=== PATIENT | male | born 1965 | race Caucasian/White ===

== ENCOUNTER 2020-08-28 14:29 | Emergency (ER) | payer OTHER ==
[~2020-08-28] VITALS: Ht 165.1 cm; Wt 68.0 kg
[~2020-08-28 14:29] MED LIST: ALBU90OI INH; ANORO ELLIPTA1 EAC1 INH; CLON1 PO; IBUP400 PO; IBUP600 PO; Lamictal150 MG PO; ONDA4ODT MM; PARO20 PO; POTA10T PO; Percocet 5-3251 EACH PO; QUET100 PO; TIZA4 PO
== END 2020-08-28 16:30 | disposition home or self-care (01) ==
LOC: ER 14:29
DX: G89.29 Other chronic pain (principal); M54.5 Low back pain; Z87.891 Personal history of nicotine dependence; Z79.899 Other long term (current) drug therapy
CPT/HCPCS: 99283; A9270-GY

== ENCOUNTER 2022-04-12 13:05 | Emergency (ER) | payer OTHER ==
[~2022-04-12] VITALS: Ht 165.1 cm; Wt 70.3 kg
[2022-04-12 15:24] LABS: BASOPHILS ABSOLUTE AUTO 0.08 K/mm3 (0.00-0.23); BASOPHILS PERCENT AUTO 1 % (0-2); EOSINOPHILS ABSOLUTE AUTO 0.03 K/mm3 (0.00-0.68); EOSINOPHILS PERCENT AUTO 0 % (0-6); Hematocrit 42.2 % (37.0-53.0); Hemoglobin 14.8 g/dL (13.5-17.5); IMMATURE GRAN PERCENT AUTO 1 % (0-1); LYMPHOCYTES ABSOLUTE AUTO 1.06 K/mm3 (0.84-5.20); LYMPHOCYTES PERCENT AUTO 10 % (21-46); MONOCYTES ABSOLUTE AUTO 0.92 K/mm3 (0.16-1.47); MONOCYTES PERCENT AUTO 9 % (4-13); Mean Corpuscular HGB 33.2 pg (26.0-34.0); Mean Corpuscular HGB Conc 35.1 g/dL (31.5-36.5); Mean Corpuscular Volume 95 fL (80-100); Mean Platelet Volume 9.5 fL (9.1-12.4); NEUTROPHILS ABSOLUTE AUTO 8.19 K/mm3 (1.96-9.15); NEUTROPHILS PERCENT AUTO 79 % (41-73); Platelet Count 308 K/mm3 (150-400); RDW Standard Deviation 48.6 fL (35.1-46.3); Red Blood Cell Count 4.46 M/mm3 (4.30-5.90); White Blood Cell Count 10.38 K/mm3 (4.00-11.30)
[2022-04-12 15:27] LABS: Albumin, Blood 4.1 g/dL (3.4-5.0); Albumin/Globulin Ratio 0.6 (0.8-1.8); Bilirubin, Total 0.6 mg/dL (0.1-1.0); Bun/Creatinine Ratio 15.2 (12.0-20.0); Creatinine, Blood 1.12 mg/dL (0.60-1.20); Globulin, Blood 6.7 g/dL (2.2-4.0); Potassium, Blood 3.9 mmol/L (3.5-5.5); Total Protein, Blood 10.8 g/dL (6.4-8.2)
[2022-04-12] MEDS ORDERED: HYDR1TAB94 PO (21:51)
[2022-04-12] MEDS ORDERED: ONDA4ODT SL (21:51)
[2022-04-12] MEDS ORDERED: AMOCLA875 PO (21:51)
== END 2022-04-12 23:19 | disposition home or self-care (01) ==
LOC: ER 13:05
PROVIDERS: Physician Assistant
DX: K57.32 Diverticulitis of large intestine without perforation or abscess without bleeding (principal); Z79.899 Other long term (current) drug therapy; Z87.891 Personal history of nicotine dependence
CPT/HCPCS: 36415; 74177; 80053; 83690; 85025; A9270; J0295; J1200; J1630; J7030; Q9967

== ENCOUNTER 2022-04-12 23:38 | Emergency (ER) | payer OTHER ==
[~2022-04-12] VITALS: Ht 165.1 cm; Wt 68.0 kg
[~2022-04-12 23:38] MED LIST changes: +AMOCLA875 PO; +HYDR1TAB94 PO; +ONDA4ODT SL
[2022-04-13 01:48] LABS: BASOPHILS ABSOLUTE AUTO 0.04 K/mm3 (0.00-0.23); BASOPHILS PERCENT AUTO 0 % (0-2); EOSINOPHILS ABSOLUTE AUTO 0.01 K/mm3 (0.00-0.68); EOSINOPHILS PERCENT AUTO 0 % (0-6); Hematocrit 37.6 % (37.0-53.0); Hemoglobin 13.1 g/dL (13.5-17.5); IMMATURE GRAN ABSOLUTE AUTO 0.06 K/mm3 (0.00-0.10); IMMATURE GRAN PERCENT AUTO 1 % (0-1); LYMPHOCYTES ABSOLUTE AUTO 1.36 K/mm3 (0.84-5.20); LYMPHOCYTES PERCENT AUTO 14 % (21-46); MONOCYTES ABSOLUTE AUTO 1.14 K/mm3 (0.16-1.47); MONOCYTES PERCENT AUTO 12 % (4-13); Mean Corpuscular HGB 33.1 pg (26.0-34.0); Mean Corpuscular HGB Conc 34.8 g/dL (31.5-36.5); Mean Corpuscular Volume 95 fL (80-100); Mean Platelet Volume 9.1 fL (9.1-12.4); NEUTROPHILS ABSOLUTE AUTO 6.93 K/mm3 (1.96-9.15); NEUTROPHILS PERCENT AUTO 73 % (41-73); Platelet Count 245 K/mm3 (150-400); RDW Standard Deviation 48.1 fL (35.1-46.3); Red Blood Cell Count 3.96 M/mm3 (4.30-5.90); White Blood Cell Count 9.54 K/mm3 (4.00-11.30)
[2022-04-13 02:07] LABS: Albumin, Blood 3.4 g/dL (3.4-5.0); Albumin/Globulin Ratio 0.6 (0.8-1.8); Bilirubin, Total 0.5 mg/dL (0.1-1.0); Bun/Creatinine Ratio 16.2 (12.0-20.0); Calcium, Blood 8.6 mg/dL (8.5-10.1); Creatinine, Blood 1.05 mg/dL (0.60-1.20); Globulin, Blood 5.9 g/dL (2.2-4.0); Potassium, Blood 3.3 mmol/L (3.5-5.5); Total Protein, Blood 9.3 g/dL (6.4-8.2)
== END 2022-04-13 05:00 | disposition home or self-care (01) ==
LOC: ER 23:38
PROVIDERS: Emergency Medicine
DX: R10.13 Epigastric pain (principal); Z79.899 Other long term (current) drug therapy; Z87.891 Personal history of nicotine dependence
CPT/HCPCS: 80053; 83690; 85025; 96374; 96375; 99283; J2405; J3010; J7030

== ENCOUNTER 2022-05-26 14:12 | Emergency (ER) | payer OTHER ==
[~2022-05-26] VITALS: Ht 165.1 cm; Wt 68.0 kg
[2022-05-26 15:18] LABS: BASOPHILS ABSOLUTE AUTO 0.06 K/mm3 (0.00-0.23); BASOPHILS PERCENT AUTO 1 % (0-2); EOSINOPHILS PERCENT AUTO 0 % (0-6); Hematocrit 44.9 % (37.0-53.0); Hemoglobin 15.3 g/dL (13.5-17.5); IMMATURE GRAN ABSOLUTE AUTO 0.04 K/mm3 (0.00-0.10); IMMATURE GRAN PERCENT AUTO 0 % (0-1); LYMPHOCYTES ABSOLUTE AUTO 0.84 K/mm3 (0.84-5.20); LYMPHOCYTES PERCENT AUTO 9 % (21-46); MONOCYTES ABSOLUTE AUTO 0.61 K/mm3 (0.16-1.47); MONOCYTES PERCENT AUTO 7 % (4-13); Mean Corpuscular HGB 32.7 pg (26.0-34.0); Mean Corpuscular HGB Conc 34.1 g/dL (31.5-36.5); Mean Corpuscular Volume 96 fL (80-100); Mean Platelet Volume 9.1 fL (9.1-12.4); NEUTROPHILS PERCENT AUTO 84 % (41-73); Platelet Count 299 K/mm3 (150-400); RDW Coefficient Variation 13.5 % (11.7-14.2); RDW Standard Deviation 47.4 fL (35.1-46.3); Red Blood Cell Count 4.68 M/mm3 (4.30-5.90); White Blood Cell Count 9.45 K/mm3 (4.00-11.30)
[2022-05-26 15:38] LABS: Albumin, Blood 4.1 g/dL (3.4-5.0); Albumin/Globulin Ratio 0.6 (0.8-1.8); Bilirubin, Total 0.7 mg/dL (0.1-1.0); Bun/Creatinine Ratio 11.6 (12.0-20.0); Calcium, Blood 10.2 mg/dL (8.5-10.1); Creatinine, Blood 0.95 mg/dL (0.60-1.20); Globulin, Blood 6.4 g/dL (2.2-4.0); Potassium, Blood 3.3 mmol/L (3.5-5.5); Total Protein, Blood 10.5 g/dL (6.4-8.2)
[2022-05-26] MEDS ORDERED: ONDA4ODT MM (20:43)
== END 2022-05-26 21:25 | disposition home or self-care (01) ==
LOC: ER 14:12
PROVIDERS: Student in an Organized Health Care Education/Training Program
DX: R11.2 Nausea with vomiting, unspecified (principal); R10.13 Epigastric pain; E87.6 Hypokalemia; R68.83 Chills (without fever); R06.02 Shortness of breath; R07.9 Chest pain, unspecified; R05.9 Cough, unspecified; Z79.899 Other long term (current) drug therapy; G40.909 Epilepsy, unspecified, not intractable, without status epilepticus
CPT/HCPCS: 36415; 71046; 80053; 83690; 84484; 85025; A9270; J1200; J1790; J1885; J2765; J7030

== ENCOUNTER 2023-08-05 12:15 | Inpatient (IN) | payer MEDICARE, OTHER ==
[~2023-08-05] VITALS: Ht 172.7 cm; Wt 72.6 kg
[2023-08-05 12:36] LABS: BASOPHILS ABSOLUTE AUTO 0.06 K/mm3 (0.00-0.23); BASOPHILS PERCENT AUTO 1 % (0-2); EOSINOPHILS ABSOLUTE AUTO 0.12 K/mm3 (0.00-0.68); EOSINOPHILS PERCENT AUTO 2 % (0-6); Hematocrit 40.2 % (37.0-53.0); Hemoglobin 13.6 g/dL (13.5-17.5); IMMATURE GRAN ABSOLUTE AUTO 0.04 K/mm3 (0.00-0.10); IMMATURE GRAN PERCENT AUTO 1 % (0-1); LYMPHOCYTES ABSOLUTE AUTO 1.57 K/mm3 (0.84-5.20); LYMPHOCYTES PERCENT AUTO 23 % (21-46); MONOCYTES ABSOLUTE AUTO 1.11 K/mm3 (0.16-1.47); MONOCYTES PERCENT AUTO 16 % (4-13); Mean Corpuscular HGB 33.5 pg (26.0-34.0); Mean Corpuscular HGB Conc 33.8 g/dL (31.5-36.5); Mean Corpuscular Volume 99 fL (80-100); Mean Platelet Volume 8.8 fL (9.1-12.4); NEUTROPHILS ABSOLUTE AUTO 4.02 K/mm3 (1.96-9.15); NEUTROPHILS PERCENT AUTO 58 % (41-73); Platelet Count 196 K/mm3 (150-400); RDW Coefficient Variation 13.9 % (11.7-14.2); RDW Standard Deviation 50.7 fL (35.1-46.3); Red Blood Cell Count 4.06 M/mm3 (4.30-5.90); White Blood Cell Count 6.92 K/mm3 (4.00-11.30)
[2023-08-05 12:41] LABS: Source, Urine Straight Cath
[2023-08-05 12:51] LABS: Appearance, Urine Hazy (Clear); Bilirubin, Urine Neg (Neg); Blood, Urine 3+ (Neg); Color, Urine Yellow (P-Yellow); Glucose Qualitative, Urine Neg (Neg); Ketones, Urine Neg (Neg); Leukocyte Esterase, Urine 1+ (Neg); Nitrite, Urine Neg (Neg); Protein, Urine 2+ (Neg); Urobilinogen, Urine NORM (Normal)
[2023-08-05 12:54] LABS: Magnesium, Blood 1.8 mg/dL (1.6-2.4); Salicylate 5.2 mg/dL (2.8-20.0)
[2023-08-05 12:58] LABS: Acetaminophen, Random <2.0 ug/mL (10.0-30.0); Alanine Aminotransfer (ALT/SGP 29 U/L (12-78); Albumin, Blood 3.4 g/dL (3.4-5.0); Albumin/Globulin Ratio 0.5 (0.8-1.8); Alk Phos 78 U/L (50-136); Anion Gap 3 mmol/L (6-16); Aspartate Aminotrans (AST/SGOT 33 U/L (12-37); Bilirubin, Total 0.7 mg/dL (0.1-1.0); Blood Urea Nitrogen 11 mg/dL (8-24); Bun/Creatinine Ratio 9.5 (12.0-20.0); CO2, Blood 25 mmol/L (21-32); Calcium, Blood 8.9 mg/dL (8.5-10.1); Chloride, Blood 109 mmol/L (98-108); Creatinine, Blood 1.16 mg/dL (0.60-1.20); Globulin, Blood 6.3 g/dL (2.2-4.0); Glomerular Filtration Rate 73 (60-); Glucose, Blood 79 mg/dL (70-99); Phosphorus, Blood 3.2 mg/dL (2.5-4.9); Potassium, Blood 3.8 mmol/L (3.5-5.5); Sodium, Blood 137 mmol/L (136-145); Total Protein, Blood 9.7 g/dL (6.4-8.2)
[2023-08-05 13:13] LABS: U Amphetamine Screen Not Detected; U Barbituate Screen Not Detected; U Benzodiazapine Screen Not Detected; U Buprenorphine Screen Not Detected; U Cannabinoids Screen DETECTED; U Cocaine Screen Not Detected; U Methadone Screen Not Detected; U Methamphetamine Screen Not Detected; U Opiates Screen Not Detected; U Oxycodone Screen Not Detected; U Phencyclidine Screen Not Detected; U Propoxyphene Screen Not Detected
[2023-08-05 13:24] LABS: International Normalized Ratio 1.03; Prothrombin Time Results 10.8 Sec (9.7-11.5)
[2023-08-05 13:26] LABS: Influenza A, PCR NEGATIVE (NEGATIVE); Influenza B, PCR NEGATIVE (NEGATIVE); Resp Syncytial Virus, PCR NEGATIVE (NEGATIVE); SARS-Cov-2 (COVID-19) PCR, MMC NEGATIVE (NEGATIVE)
[2023-08-05 13:34] LABS: Bacteria Many /hpf; Squamous Epithelial Cells Few /hpf (Few)
[2023-08-05 17:42] VITALS: BP 132/89
--- NOTE | 2023-08-05 18:29 | NUR ---
PT ARRIVED TO FLOOR AOX1 AND VERY IMPULSIVE. WOULD BE ABLE TO ANSWER SOME QUESTIONS THEN COMPLETELY NOT KNOW WHAT WAS BEING ASKED. PT TRYING TO GET OUT OF BED NONE STOP. POSE PLACED SEE PROCESS INTERVENTIONS. PT CONTINUES TO TRY TO GET OUT OF BED. BED ALARM IS IN PLACE AND PT BEING MONITORED CLOSELY.
[2023-08-05 19:22] VITALS: BP 124/80
[2023-08-06] MEDS ORDERED: KLOR-CON M1010 MEQ PO (02:48)
[2023-08-06] MEDS ORDERED: QUETIAPINE FUM10011 PO (02:49)
[2023-08-06] MEDS ORDERED: ANORO ELLIPTA1 EAC1 INH (02:50)
[2023-08-06] MEDS ORDERED: ONDA8 PO (02:51)
--- NOTE | 2023-08-06 03:27 | NUR ---
SHIFT SUMMERY. PT RESTING IN BED, RESPERATIONS EVEN AND UNLABORED. PT SLEEPING HEN AWAKE ANT TALKING.PT THROWING OFF BLANKET THEN SAYING HE WAS COLD SO PLACED BLAnkets back on pt THEN PT WOULD LATER TAE OFF AND SO ON. CALL LIGHT IN REACH BED ALARM ON.
[2023-08-06 04:27] VITALS: BP 135/92
[2023-08-06 06:00] LABS: BASOPHILS ABSOLUTE AUTO 0.06 K/mm3 (0.00-0.23); BASOPHILS PERCENT AUTO 1 % (0-2); EOSINOPHILS ABSOLUTE AUTO 0.14 K/mm3 (0.00-0.68); EOSINOPHILS PERCENT AUTO 2 % (0-6); Hematocrit 39.1 % (37.0-53.0); Hemoglobin 13.5 g/dL (13.5-17.5); IMMATURE GRAN ABSOLUTE AUTO 0.04 K/mm3 (0.00-0.10); IMMATURE GRAN PERCENT AUTO 1 % (0-1); LYMPHOCYTES ABSOLUTE AUTO 1.29 K/mm3 (0.84-5.20); LYMPHOCYTES PERCENT AUTO 19 % (21-46); MONOCYTES ABSOLUTE AUTO 1.11 K/mm3 (0.16-1.47); MONOCYTES PERCENT AUTO 16 % (4-13); Mean Corpuscular HGB 33.8 pg (26.0-34.0); Mean Corpuscular HGB Conc 34.5 g/dL (31.5-36.5); Mean Corpuscular Volume 98 fL (80-100); Mean Platelet Volume 9.2 fL (9.1-12.4); NEUTROPHILS ABSOLUTE AUTO 4.29 K/mm3 (1.96-9.15); NEUTROPHILS PERCENT AUTO 62 % (41-73); Platelet Count 192 K/mm3 (150-400); RDW Coefficient Variation 13.5 % (11.7-14.2); RDW Standard Deviation 48.7 fL (35.1-46.3); White Blood Cell Count 6.93 K/mm3 (4.00-11.30)
[2023-08-06 06:39] LABS: Bun/Creatinine Ratio 10.2 (12.0-20.0); Calcium, Blood 8.7 mg/dL (8.5-10.1); Creatinine, Blood 0.98 mg/dL (0.60-1.20); Potassium, Blood 3.5 mmol/L (3.5-5.5)
[2023-08-06 07:19] VITALS: BP 109/79
--- NOTE | 2023-08-06 09:00 | NUR ---
pt very active in bed, has been repositioned and reoriented several times, alert to self, took po meds without diff, follows directions mostly, lungs are clear dim in bases, on r/a, no cough noted, hrr, tele in place running sr per monitor, see strip, no edema noted, ppp+2, cap refill <3sec, vs stable, iv to lac site is clear and patent, btx4, abd flat soft nontender, incont of bowel/bladder briefs in place, skin has a skin tear to left fa left posterior shoulder has an abrasion, dressings were placed, heel protectors were placed, irineo laird call light in reach. gio vest in place.
[2023-08-06 15:54] VITALS: BP 136/95
--- NOTE | 2023-08-06 18:07 | NUR ---
pt has been trying to climb out of bed, has been redirectable, tonlela did tell me he wont fall and argued a bit, insisting he can get oob. no further changes this shift. call light in reach.
[2023-08-06 19:37] VITALS: BP 138/71
--- NOTE | 2023-08-07 04:05 | NUR ---
SHIFT SUMMARY A/OX1 VERY FORGETFUL, HALLUCINATIONS, YET PLEASENT AND COOPERATIVE PT HAS TO CONSTANTLY BE REORIENTED TO ALL ASPECTS. CHRONIC PAIN ISSUES DUE TO PREVIOUS UNKNOWN INJURY TBI. PT ALSO SUFFERS FROM CHRONIC NAUSEA AND HAD BEEN VOMITING ALL NIGHTEITHER ON SELF OR ON THE GROUND. SHEETS AND TOWELS PLACED ON GROUND INORDER TO ABSORB VOMIT, PT VERY THANKFUL FOR CARE HE IS RECEIVING BECAUSE HIS IS SOMEWHAT AWARE OF HIS LIMITATIONS THOUGH HE TRIES TO EXIT BED CONTINOUSLY. JUAN C HAS WORKED SO FAR BUT PT HAS LEARNED TO TAKE JUAN C OFF. IVS WERE PULLED UP BY PT AND HE APPOLOGIZED FOR PULLING THEM OUT, HE IS COMPLETLY UNAWARE OF WHAT HE IS DOING. NEW IV PLACED TO UPPER ARM IN HOPES TO AVOID BEING PULLED OUT BUT ONCE IV FLUIDS WERE ATTACHED PT IMMEDIATLY TRIED PULLING THEM OUT. WAS INFORMED AND I DECIDED TO NOT RECONNECT IV. WILL CONT MONITORING
[2023-08-07 07:55] VITALS: BP 109/72
[2023-08-07 15:27] VITALS: BP 119/98
--- NOTE | 2023-08-07 17:59 | NUR ---
SHIFT SUMMARY PT ALERT TO SELF. PT SLEPT FOR SEVERAL HOURS IN THE MORNING BUT WAS MUCH MORE AWAKE IN THE AFTERNOON. PT WORKED WITH PHYSCIAL THERAPIST TODAY AND TOLERATED WELL. PT CONTINUES TO ATEMPT TO GET OOB BUT HAS BEEN SOMEWHAT REDIRECTABLE WITH THE REMOTE MONITOR. PT C/O PAIN AND NAUSEA IN THE MORNING AND WAS MEDICATED PER EMAR WITH GOOD EFFECT. PT WAS ABLE TO AMBULATE TO BATHROOM WITH MINIMAL ASSIST IN AFTERNOON. VSS. BED IN LOWEST POSITION AND CALL LIGHT IN REACH.
[2023-08-07 21:23] VITALS: BP 131/86
[2023-08-08 04:38] VITALS: BP 123/80
--- NOTE | 2023-08-08 05:19 | NUR ---
SHIFT SUMMARY: PT IS ALERT AND ORIENTED X 2-3. PT IS CALM AND COOPERATIVE WITH CARE. PT CONTINUES TO BE IN A JUAN C DUE TO POOR JUDGEMENT AND HIGH FALL RISK, NOT OUT OF BED OVERNIGHT. PT DENIES PAIN, NAUSEA, VOMITING, AND SOB. PT SLEPT VERY LITTLE OVERNIGHT. BED IN LOW POSITION, CALL LIGHT WITHIN REACH. NO ACUTE CHANGES. WILL REPORT TO DAY NURSE.
[2023-08-08 07:19] VITALS: BP 130/88
[2023-08-08 15:58] VITALS: BP 119/68
--- NOTE | 2023-08-08 18:39 | NUR ---
SHIFT SUMMARY- PT ALERT AND ORIENTED TO SELF. Hx TRAUMATIC BRAIN INJURY. PT IS VERY FORGETFUL, JUAN C VEST DC'D AT THE START OF THE SHIFT. PT IS IMPULSIVE BUT REORIENTATION SEEMS TO BE MORE EFFECTIVE AT THIS TIME. PT IS SITTING IN BED AT THE EOB ATTEMPTING TO EAT DINNER. PT C/O NAUSEA THIS EVENING MEDICATED WITH PO ZOFRAN. PT IV IS SL AT THIS TIME, NO CURRENT S&S OF DISTRESS NOTED.
[2023-08-08 19:29] VITALS: BP 137/85
--- NOTE | 2023-08-09 04:15 | NUR ---
NOC SHIFT SUMMARY: INDEPENDENT TO THE BATHROOM. NO C/O PAIN. CALLS APPROPRIATELY.
[2023-08-09 05:10] VITALS: BP 109/79
[2023-08-09 07:29] VITALS: BP 111/81
[2023-08-09 09:32] VITALS: BP 135/78
[2023-08-09 09:44] VITALS: BP 135/78
[2023-08-09] MEDS ORDERED: CEPH500 PO (11:06)
--- NOTE | 2023-08-09 17:37 | NUR ---
DISCHARGE NOTE PT DISCHARGED HOME AT APPROX 15:30. PT PROVIDED VERBAL AND WRITTEN INSTRUCTIONS AND REPORTED UNDERSTANDING. PT A&OX4, VSS, AMB W/ SBA, TOLERATING PO, AND VOIDING. PT BELONGINGS RETURNED AND ESCOURTED OUT VIA W/C BY NUBIA MOREIRA TO PT ENTRANCE FOR [facility].
== END 2023-08-09 17:24 | disposition home health service (06) | DRG 689 ==
LOC: ER 12:15 → MEDS 12:16
PROVIDERS: Emergency Medicine; ADMIT Internal Medicine
DX: N39.0 Urinary tract infection, site not specified (principal); G92.8 Other toxic encephalopathy; K21.9 Gastro-esophageal reflux disease without esophagitis; F03.90 Unspecified dementia, unspecified severity, without behavioral disturbance, psychotic disturbance, mood disturbance, and anxiety; G40.909 Epilepsy, unspecified, not intractable, without status epilepticus; F12.90 Cannabis use, unspecified, uncomplicated; G89.29 Other chronic pain; F41.9 Anxiety disorder, unspecified; F32.A Depression, unspecified; B96.20 Unspecified Escherichia coli [E. coli] as the cause of diseases classified elsewhere; Z11.52 Encounter for screening for COVID-19; Z79.899 Other long term (current) drug therapy; Z79.51 Long term (current) use of inhaled steroids; Z87.820 Personal history of traumatic brain injury; Z79.891 Long term (current) use of opiate analgesic; Z79.2 Long term (current) use of antibiotics; Z98.890 Other specified postprocedural states; Z87.891 Personal history of nicotine dependence
CPT/HCPCS: 0241U; 36415; 51701; 70450; 70496; 70498; 71045; 80048; 80053; 81001; 82140; 83605; 83735; 83880; 84100; 84484; 85025; 85610; 85730; 87040; 87077; 87086; 87186; 93005; 93010; 94640; 94664; 94760; 96361-59; 96365-59; 96372; 96376; 97116; 97129; 97161; 97166; 97530; 97535; 99285-25; A9270; G0378; G0480; J0696; J1650; J2405; J7030; J7120; Q9967

== ENCOUNTER 2023-12-13 02:51 | Inpatient (IN) | payer MEDICARE, OTHER ==
[~2023-12-13] VITALS: Ht 165.1 cm; Wt 58.7 kg
[~2023-12-13 02:51] MED LIST changes: +CEPH500 PO; +KLOR-CON M1010 MEQ PO; +ONDA8 PO; +QUETIAPINE FUM10011 PO
[2023-12-13] MEDS ORDERED: Ipratropium/Albuterol SulF 2.5-0.5MG/3 ML Amp INH ONE (03:30)
[2023-12-13 04:36] LABS: BASOPHILS ABSOLUTE AUTO 0.11 K/mm3 (0.00-0.23); BASOPHILS PERCENT AUTO 1 % (0-2); EOSINOPHILS ABSOLUTE AUTO 0.62 K/mm3 (0.00-0.68); EOSINOPHILS PERCENT AUTO 8 % (0-6); Hematocrit 38.9 % (37.0-53.0); IMMATURE GRAN ABSOLUTE AUTO 0.06 K/mm3 (0.00-0.10); IMMATURE GRAN PERCENT AUTO 1 % (0-1); LYMPHOCYTES ABSOLUTE AUTO 2.16 K/mm3 (0.84-5.20); LYMPHOCYTES PERCENT AUTO 28 % (21-46); MONOCYTES ABSOLUTE AUTO 1.03 K/mm3 (0.16-1.47); MONOCYTES PERCENT AUTO 13 % (4-13); Mean Corpuscular HGB 32.8 pg (26.0-34.0); Mean Corpuscular HGB Conc 33.4 g/dL (31.5-36.5); Mean Corpuscular Volume 98 fL (80-100); Mean Platelet Volume 8.6 fL (9.1-12.4); NEUTROPHILS PERCENT AUTO 48 % (41-73); Platelet Count 255 K/mm3 (150-400); RDW Coefficient Variation 14.2 % (11.7-14.2); RDW Standard Deviation 51.9 fL (35.1-46.3); Red Blood Cell Count 3.96 M/mm3 (4.30-5.90); White Blood Cell Count 7.68 K/mm3 (4.00-11.30)
[2023-12-13 05:24] LABS: Alanine Aminotransfer (ALT/SGP 21 U/L (12-78); Albumin, Blood 3.3 g/dL (3.4-5.0); Albumin/Globulin Ratio 0.6 (0.8-1.8); Alk Phos 71 U/L (50-136); Anion Gap Unable to Calculate mmol/L (6-16); Aspartate Aminotrans (AST/SGOT 36 U/L (12-37); Bilirubin, Total 0.2 mg/dL (0.1-1.0); Blood Urea Nitrogen 11 mg/dL (8-24); CO2, Blood 31 mmol/L (21-32); Calcium, Blood 8.5 mg/dL (8.5-10.1); Chloride, Blood 109 mmol/L (98-108); Creatinine, Blood 0.92 mg/dL (0.60-1.20); Globulin, Blood 5.5 g/dL (2.2-4.0); Glomerular Filtration Rate 96 (60-); Glucose, Blood 102 mg/dL (70-99); Potassium, Blood 3.7 mmol/L (3.5-5.5); Sodium, Blood 139 mmol/L (136-145); Total Protein, Blood 8.8 g/dL (6.4-8.2)
[2023-12-13] MEDS ORDERED: MethylPREDNISolone Sod Succ 125 MG Vial IV ONE (06:00)
[2023-12-13] MEDS ORDERED: Ondansetron HCl 2 MG / ML 2ML Vial IV PRN (06:10)
[2023-12-13] MEDS ORDERED: FLU VACC QS2023-24(6MOS UP)/PF 60 MCG/0.5 ML SYRINGE IM ONE (06:10)
[2023-12-13] MEDS ORDERED: Ipratropium/Albuterol SulF 2.5-0.5MG/3 ML Amp INH PRN (06:15)
[2023-12-13] MEDS ORDERED: ClonazePAM 1 MG Tab PO PRN ×2 (06:20→10:30)
[2023-12-13] MEDS ORDERED: MethylPREDNISolone Sod Succ 125 MG Vial IV SCH (08:00)
[2023-12-13] MEDS ORDERED: LamoTRIgine 100 MG Tab PO SCH (09:00)
[2023-12-13] MEDS ORDERED: QUEtiapine Fumarate 50 MG TAB PO SCH (09:00)
[2023-12-13] MEDS ORDERED: Azithromycin 500 MG in NS 250 ML IV SCH (09:00)
[2023-12-13] MEDS ORDERED: PARoxetine HCl 20 MG Tab PO SCH (09:00)
[2023-12-13] MEDS ORDERED: Enoxaparin 40 MG/0.4 ML SYR SC SCH (09:00)
[2023-12-13] MEDS ORDERED: Mometasone/Formoterol MDI 200/5 mcg 13 GM INH SCH (09:30)
[2023-12-13 11:21] LABS: Influenza A, PCR NEGATIVE (NEGATIVE); Influenza B, PCR NEGATIVE (NEGATIVE); Resp Syncytial Virus, PCR NEGATIVE (NEGATIVE); SARS-Cov-2 (COVID-19) PCR, MMC NEGATIVE (NEGATIVE)
[2023-12-13 12:33] VITALS: BP 139/88
[2023-12-13 15:29] VITALS: BP 133/88
[2023-12-13] MEDS ORDERED: ALBUTEROL INH PRN (16:05)
--- NOTE | 2023-12-13 18:01 | NUR ---
SHIFT SUMMARY: PATIENT IS A 58 YEAR OLD MALE HERE FOR ACUTE RESPIRATORY FAILURE. HE IS REQUIRING SUPPLEMENTAL OXYGEN TO MAINTAIN OXYGEN SATURATION LEVELS >92%. HE IS ON ROOM AIR AT BASELINE. HE IS PLEASANT, BUT CAN BE ERRATIC/ANXIOUS IN BEHAVIOR. HE MAKES HIS NEEDS KNOWN AND AMBULATES INDEPENDENTLY IN HIS ROOM. HE IS RECEIVING BREATHING TREATMENTS AND STERIODS; HE IS AWAITING AN ECHOCARIOGRAM. HE IS IN HIS BED, CALL LIGHT WITHIIN REACH, NO SIGNS OR SYPTOMS OF DISTRESS, PLAN OF CARE ONGOING.
[2023-12-13 19:34] VITALS: BP 100/83
--- NOTE | 2023-12-13 20:29 | NUR ---
UPDATE THIS RN CALLED BY BEDSIDE RN THAT PATIENT WAS BEING BELLIGERENT. THIS RN WENT INTO TO TALK TO PATIENT. PATIENT CUSSING AT THIS RN, CALLING "OTHER NURSE" A "BITCH". PATIENT INFORMED HE CANNOT CUSS AT STAFF OR CALL THEM NAMES. PATIENT WANTING COFFEE. INFORMED PATIENT IT WAS BEING BREWED AND BROUGHT PATIENT FRESH COFFEE. PATIENT PROCEEDED TO YELL AT THIS RN. THIS RN INFORMED PATIENT HE CANNOT TALK TO STAFF LIKE THAT AND SECURITY WILL BE CALLED IF HE CONTINUES. PATIENT STARTED TO CALM DOWN AND EVENTUALLY APOLOGIZED.
[2023-12-14 03:38] VITALS: BP 115/64
--- NOTE | 2023-12-14 05:22 | NUR ---
SHIFT SUMMARY Pt remains A&O x3 this shift. Denies pain. VSS. On 4L NC with continuous pulse ox. Desats to 88% on RA. Remind pt to leave oxygen on. Up to bathroom independently. Will also use urinal. Plan of care reviewed with pt. Will continue to monitor.
[2023-12-14 06:12] LABS: BASOPHILS ABSOLUTE AUTO 0.05 K/mm3 (0.00-0.23); BASOPHILS PERCENT AUTO 0 % (0-2); EOSINOPHILS ABSOLUTE AUTO 0.01 K/mm3 (0.00-0.68); EOSINOPHILS PERCENT AUTO 0 % (0-6); Hematocrit 38.6 % (37.0-53.0); Hemoglobin 13.3 g/dL (13.5-17.5); IMMATURE GRAN ABSOLUTE AUTO 0.22 K/mm3 (0.00-0.10); IMMATURE GRAN PERCENT AUTO 1 % (0-1); LYMPHOCYTES ABSOLUTE AUTO 1.37 K/mm3 (0.84-5.20); LYMPHOCYTES PERCENT AUTO 7 % (21-46); MONOCYTES ABSOLUTE AUTO 0.89 K/mm3 (0.16-1.47); MONOCYTES PERCENT AUTO 4 % (4-13); Mean Corpuscular HGB 33.2 pg (26.0-34.0); Mean Corpuscular HGB Conc 34.5 g/dL (31.5-36.5); Mean Corpuscular Volume 96 fL (80-100); Mean Platelet Volume 8.9 fL (9.1-12.4); NEUTROPHILS ABSOLUTE AUTO 17.71 K/mm3 (1.96-9.15); NEUTROPHILS PERCENT AUTO 88 % (41-73); Platelet Count 308 K/mm3 (150-400); RDW Coefficient Variation 14.1 % (11.7-14.2); RDW Standard Deviation 49.2 fL (35.1-46.3); Red Blood Cell Count 4.01 M/mm3 (4.30-5.90); White Blood Cell Count 20.25 K/mm3 (4.00-11.30)
[2023-12-14 06:48] LABS: Albumin, Blood 3.5 g/dL (3.4-5.0); Albumin/Globulin Ratio 0.6 (0.8-1.8); Bilirubin, Total 0.4 mg/dL (0.1-1.0); Bun/Creatinine Ratio 12.7 (12.0-20.0); Creatinine, Blood 0.95 mg/dL (0.60-1.20); Globulin, Blood 5.8 g/dL (2.2-4.0); Potassium, Blood 4.2 mmol/L (3.5-5.5); Total Protein, Blood 9.3 g/dL (6.4-8.2)
[2023-12-14] MEDS ORDERED: Albuterol HFA200 ACT/6.7 GM INH INH PRN (11:35)
[2023-12-14 15:34] VITALS: BP 114/68
--- NOTE | 2023-12-14 17:19 | NUR ---
SHIFT SUMMARY: NO EVENTS OR CHANGED WITH THE PATIENT THROUGHOUT THE SHIFT. THE PATIENT HAS BEEN RESTING MOST OF THE AFTERNOON. 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 HE IS MAINTAIN OXYGEN SATURATION AT 92% AND GREATER ON ROOM AIR. RECEIVING BREATHING TREATMENTS NEEDED. HE IS SLEEPING CURRENTLY, RESPIRATIONS EVEN AND UNLABORED, CONTINOUS PULSE OX MONITORING HEAT RATE AND O2%. ECHO COMPLETED THIS MORNING RESULTS PENDING. NO SIGNS OR SYMPTOMS OF DISTRESS. PLAN OF CARE ONGOING.
[2023-12-14 19:49] VITALS: BP 115/73
[2023-12-14] MEDS ORDERED: MethylPREDNISolone Sod Succ 40 MG VIAL IV SCH (21:00)
--- NOTE | 2023-12-15 04:14 | NUR ---
1900: ASSUMED CARE OF PT, BEDSIDE REPORT RECEIVED FROM RACHEL RN. PT LAYING IN BED ON HIS BACK. BREATHING IS EVEN AND UNLABORED ON ROOM AIR, WHEEZES AUDIBLE ON AUSCULTATION. PT IS A/O, ABLE TO MAKE NEEDS KNOWN. AGREABLE TO CPAP. TOLERATED WELL. NO ACUTE EVENTS DURING THE NIGHT. SAFETY MEASURES TAKEN. ALL NEEDS ADDRESSED.
[2023-12-15 04:23] VITALS: BP 117/90
[2023-12-15 07:54] VITALS: BP 114/77
[2023-12-15] MEDS ORDERED: FLUTICASONE P250 MCG INH (13:15)
[2023-12-15] MEDS ORDERED: PRED20 PO (13:15)
--- NOTE | 2023-12-15 15:35 | NUR ---
PATIENT DISCHARGED TO HOME ([facility]) VIA TAXI. IV SALINE LOCK AND TELEMETRY REMOVED WITHOUT INCIDENT. SINCE PT HAS HX OF TBI, HE WILL DO THE BEST HE CAN WITH HIS INSTRUCTIONS, BUT STATED HE HAS NO ONE AROUND TO HELP HIM. HE ALSO NEEDS TO ESTABLISH CARE WITH A NEW PCP HE STATED THAT HIS PREVIOUS PCP RECENTLY. KEVIN TREVINO IS STATED SHE IS SENDING AN EMAIL TO HIS CASE [employer] TO SEE IF THEY CAN HELP HIM WITH THE PAPERWORK. THIS AUTHOR ESCORTED HIM OFF THE UNIT TO THE PATIENT ENTRANCE ON THE SECOND FLOOR AND WAITED WITH HIM UNTIL TAXI ARRIVED. TAXI ARRIVED AT 1520.
== END 2023-12-15 15:07 | disposition home or self-care (01) | DRG 189 ==
LOC: ER 02:51 → ICUE 06:07 → PCU 06:07 → ICUE 08:10 → MEDS 12:27
PROVIDERS: Emergency Medicine; ADMIT Internal Medicine
PROC: 5A09357 Assistance with Respiratory Ventilation, Less than 24 Consecutive Hours, Continuous Positive Airway Pressure (ICD-10-PCS; principal; 2023-12-13)
DX: J96.01 Acute respiratory failure with hypoxia (principal); J44.1 Chronic obstructive pulmonary disease with (acute) exacerbation; G40.909 Epilepsy, unspecified, not intractable, without status epilepticus; F41.9 Anxiety disorder, unspecified; F12.90 Cannabis use, unspecified, uncomplicated; F32.A Depression, unspecified; Z87.820 Personal history of traumatic brain injury; Z87.891 Personal history of nicotine dependence; Z79.899 Other long term (current) drug therapy; Z98.890 Other specified postprocedural states; Z99.81 Dependence on supplemental oxygen; Z11.52 Encounter for screening for COVID-19
CPT/HCPCS: 0241U; 36415; 71045; 80053; 83605; 83880; 84145; 84484; 85025; 85379; 93005; 93010; 93306; 94640; 94660; 94664; 94762; 96374; 96375; 99285-25; A9270; J1650; J2405; J2920; J2930